=== PATIENT | female | born 1960 | race Caucasian/White ===

== ENCOUNTER 2019-10-12 09:47 | Day surgery (SDC) | payer OTHER ==
[~2019-10-12] VITALS: Ht 154.9 cm; Wt 65.8 kg
[2019-10-12] MEDS ORDERED: fentaNYL 0.05 MG/ML VIAL ONE (13:31)
[2019-10-12] MEDS ORDERED: LIDOCAINE 2% 100 MG/5 ML UJET TP ONE (13:31)
[2019-10-12] MEDS ORDERED: fentaNYL 0.05 MG/ML VIAL IVP ONE (14:15)
== END 2019-10-12 14:12 | disposition home or self-care (01) ==
LOC: MDS 09:47 → MMU 09:48 → MDS 14:12
PROVIDERS: ATTEND Internal Medicine Gastroenterology
DX: R14.0 Abdominal distension (gaseous) (principal); E11.9 Type 2 diabetes mellitus without complications; E78.00 Pure hypercholesterolemia, unspecified; E66.3 Overweight; Z90.89 Acquired absence of other organs; Z90.710 Acquired absence of both cervix and uterus; M19.90 Unspecified osteoarthritis, unspecified site; Z85.830 Personal history of malignant neoplasm of bone; Z88.6 Allergy status to analgesic agent; Z88.8 Allergy status to other drugs, medicaments and biological substances; Z79.84 Long term (current) use of oral hypoglycemic drugs; Z79.899 Other long term (current) drug therapy
CPT/HCPCS: 45378; J3010